=== PATIENT | male | born 1955 | race Two or more races ===

== ENCOUNTER 2019-11-20 22:59 | Emergency (ER) | payer SELFPAY ==
[~2019-11-20] VITALS: Ht 175.3 cm; Wt 90.0 kg
[2019-11-20] MEDS ORDERED: LABETALOL 20 MG/4 ML DISP.SYRIN. IVP ONE (23:45)
[2019-11-20] MEDS ORDERED: TETRACAINE 0.5% OPHTH SOLUTION 4ML BOTTLE. OU ONE (23:45)
[2019-11-20 23:48] LABS: BASO % 0 % (0-3); EOS # 0.2 x10^3/uL (0.0-0.7); EOS % 3 % (0-3); HEMATOCRIT 42.7 % (39.0-53.0); HEMOGLOBIN 14.7 g/dL (13.0-17.5); LYMPH # 2.2 x10^3/uL (1.0-4.8); LYMPH % 33 % (24-48); MEAN CORPUSCULAR HEMOGLOBIN 31 pg (25-35); MEAN CORPUSCULAR HGB CONC 35 g/dL (31-37); MEAN CORPUSCULAR VOLUME 90 fL (79-100); MONO # 0.6 x10^3/uL (0.0-1.1); MONO % 9 % (0-9); NEUT # 3.6 x10^3/uL (1.8-7.7); NEUT % 54 % (31-73); PLATELET COUNT 217 x10^3/uL (140-400); RED BLOOD COUNT 4.75 x10^6/uL (4.30-5.70); RED CELL DISTRIBUTION WIDTH 13.3 % (11.5-14.5); WHITE BLOOD COUNT 6.6 x10^3/uL (4.0-11.0)
--- NOTE | 2019-11-20 23:52 | EKG ---
[facility] [address] [place] [address] Test Date: 2019-11-20 Test Time: 23:35:30 Pat Name: MISTI MAZARIEGOS Department: Room: Gender: M Generation Engineer: : [id number] Requested By: CL BAPTISTE Order Number: [id number] Reading MD: Measurements Intervals Kermit Rate: 66 P: CA: QRS: -12 QRSD: 92 T: 42 QT: 390 QTc: 410 Interpretive Statements ATRIAL FIBRILLATION LEFTWARD AXIS ABNORMAL ECG No previous ECG available for comparison
[2019-11-20 23:55] LABS: CALCIUM 8.9 mg/dL (8.5-10.1); CREATININE 1.1 mg/dL (0.7-1.3); GFR 67.2; POTASSIUM 3.6 mmol/L (3.5-5.1)
[2019-11-21 00:01] LABS: ALBUMIN 3.7 g/dL (3.4-5.0); ALBUMIN/GLOBULIN RATIO 0.9 (1.0-1.7); TOTAL BILIRUBIN 0.3 mg/dL (0.2-1.0); TOTAL PROTEIN 7.6 g/dL (6.4-8.2)
--- NOTE | 2019-11-21 00:07 | RAD ---
CHEST AP ONLY History: Chest pain Comparison: None. Findings: No consolidation or pleural effusion. Normal heart size. No pneumothorax. Impression: 1. No acute cardiopulmonary process. Electronically signed by: Alex Cunningham DO (11/21/2019 12:04 AM) [id number]
[2019-11-21] MEDS ORDERED: AMLO10TA4 PO (01:04)
--- NOTE | 2019-11-21 01:04 | PHYS DOC ---
Past Medical History Past Medical History: No Pertinent History Past Surgical History: No Surgical History Smoking Status: Never Smoker Alcohol Use: None Adult General Chief Complaint Chief Complaint: EYE PROBLEMS HPI HPI Patient is a 64 year old Korean-speaking male who presents with multiple medical complaints. Patient reports right retro-orbital headache with right eye redness with decreased vision in right eye the past 3 months. Patient reportedly was diagnosed with an eye infection and treated with drops which did not improve. Patient does not have health insurance and did not follow-up with a primary care doctor or an trading specialist. He is continued to have pain with progressive vision loss able to see light and dark and outlines of shapes only in his right eye. Patient also noted be hypertensive blood pressure 200/100. Patient does not take any medication or participate in routine health care. Translation is provided by a female family member who is present in the room. [] Review of Systems Review of Systems ROS PER hpi All other systems were reviewed and found to be within normal limits, except as documented in this note. Current Medications Current Medications Current Medications Medications (Trade) Dose Ordered Sig/Prem Start Time Stop Time Status Last Admin Dose Admin Labetalol HCl (Normodyne Iv Push) 20 mg 1X ONCE 11/20/19 23:45 11/20/19 23:46 DC 11/20/19 23:58 20 MG Tetracaine HCl (Tetracaine) 1 drop 1X ONCE 11/20/19 23:45 11/20/19 23:46 DC Allergies Allergies Allergies Coded Allergies Type Severity Reaction Last Updated Verified No Known Drug Allergies 11/20/19 No Physical Exam Physical Exam Constitutional: Well developed, well nourished, no acute distress, non-toxic appearance. [] HENT: Normocephalic, atraumatic, bilateral external ears normal, oropharynx moist, no oral exudates, nose normal. [] Eyes: Pupils round, limited right pupil reactivity, EOMI, right, injected, cornea clouded, medial pytergium present, unable to perform posterior funduscopic exam. Left eye, conjunctiva, scleral normal. Visual acuity noted per nursing note. IOP D 85, S 58.[] Neck: Normal range of motion. [] Cardiovascular:Heart rate regular rhythm, no murmur [] Lungs & Thorax: Bilateral breath sounds clear to auscultation [] Abdomen: Bowel sounds normal, soft, no tenderness, no masses, no pulsatile masses. [] Skin: Warm, dry, no erythema, no rash. [] Back: No tenderness, no CVA tenderness. [] Extremities: No tenderness, no edema. [] Neurologic: Alert and oriented, normal motor function, normal sensory function, no focal deficits noted. [] Psychologic: Affect normal, judgement normal, mood normal. [] Current Patient Data Vital Signs Vital Signs Date Time Temp Pulse Resp B/P (MAP) Pulse Ox O2 Delivery O2 Flow Rate FiO2 11/20/19 23:58 66 171/82 11/20/19 23:10 97.8 20 99 Room Air 97.8 Lab Values Laboratory Tests Test 11/20/19 23:40 White Blood Count 6.6 x10^3/uL (4.0-11.0) Red Blood Count 4.75 x10^6/uL (4.30-5.70) Hemoglobin 14.7 g/dL (13.0-17.5) Hematocrit 42.7 % (39.0-53.0) Mean Corpuscular Volume 90 fL (79-100) Mean Corpuscular Hemoglobin 31 pg (25-35) Mean Corpuscular Hemoglobin Concent 35 g/dL (31-37) Red Cell Distribution Width 13.3 % (11.5-14.5) Platelet Count 217 x10^3/uL (140-400) Neutrophils (%) (Auto) 54 % (31-73) Lymphocytes (%) (Auto) 33 % (24-48) Monocytes (%) (Auto) 9 % (0-9) Eosinophils (%) (Auto) 3 % (0-3) Basophils (%) (Auto) 0 % (0-3) Neutrophils # (Auto) 3.6 x10^3/uL (1.8-7.7) Lymphocytes # (Auto) 2.2 x10^3/uL (1.0-4.8) Monocytes # (Auto) 0.6 x10^3/uL (0.0-1.1) Eosinophils # (Auto) 0.2 x10^3/uL (0.0-0.7) Basophils # (Auto) 0.0 x10^3/uL (0.0-0.2) Sodium Level 140 mmol/L (136-145) Potassium Level 3.6 mmol/L (3.5-5.1) Chloride Level 104 mmol/L (98-107) Carbon Dioxide Level 28 mmol/L (21-32) Anion Gap 8 (6-14) Blood Urea Nitrogen 14 mg/dL (8-26) Creatinine 1.1 mg/dL (0.7-1.3) Estimated GFR (Cockcroft-Gault) 67.2 BUN/Creatinine Ratio 13 (6-20) Glucose Level 160 mg/dL (70-99) H Calcium Level 8.9 mg/dL (8.5-10.1) Total Bilirubin 0.3 mg/dL (0.2-1.0) Aspartate Amino Transferase (AST) 26 U/L (15-37) Alanine Aminotransferase (ALT) 38 U/L (16-63) Alkaline Phosphatase 104 U/L (46-116) Total Protein 7.6 g/dL (6.4-8.2) Albumin 3.7 g/dL (3.4-5.0) Albumin/Globulin Ratio 0.9 (1.0-1.7) L Laboratory Tests 11/20/19 23:40 Laboratory Tests 11/20/19 23:40 EKG EKG [EKG: reviewed] Radiology/Procedures Radiology/Procedures [] Course & Med Decision Making Course & Med Decision Making Pertinent Labs and Imaging studies reviewed. (See chart for details) [Patient with multiple chronic untreated medical conditions with particular concern for chronic right eye pain with vision loss. Patient with significant visual acuity deficit with elevated IOP. 20/200, 85 in right eye with 20/25, 58 in left eye. Patient was also noted to be hypertensive. Labetalol given with improvement. Lab work, EKG also reviewed. Given the patient's multiple longstanding problems and chronic right eye vision loss, I will refer him to primary care provider and started him on blood pressure medications. Patient's daughter states she has eye doctor that she plans to call for an appointment later tomorrow. Patient and family instructed that patient is at increased risk of vision loss of the left eye.] Dragon Disclaimer Dragon Disclaimer This electronic medical record was generated, in whole or in part, using a voice recognition dictation system. Departure Departure Impression: Primary Impression: Pain around right eye Additional Impressions: Vision loss of right eye Glaucoma Elevated blood pressure reading Disposition: HOME, SELF-CARE Condition: STABLE Referrals: NO PCP (PCP) Patient Instructions: Glaucoma, Hypertension Additional Instructions: You were evaluated in the emergency department for right eye pain and vision loss. It is important that you follow-up with the eye doctor tomorrow or Saturday for formal eye evaluation and treatment. You are at risk of vision loss in your left eye if you do not follow-up with an eye doctor next week. Please start blood pressure medication and take as directed. Please establish with a local primary care provider for further primary care and screening and management of chronic medical conditions. Scripts Amlodipine Besylate (NORVASC) 10 Mg Tablet 10 MG PO DAILY, #30 TAB Prov: CL BAPTISTE DO 11/21/19 Problem Qualifiers CL BAPTISTE DO Nov 21, 2019 01:04
[2019-11-21 01:20] VITALS: BP 175/89
== END 2019-11-21 01:26 | disposition home or self-care (01) ==
LOC: ER 22:59
DX: H54.61 Unqualified visual loss, right eye, normal vision left eye (principal); H57.11 Ocular pain, right eye; H40.9 Unspecified glaucoma; I10 Essential (primary) hypertension; R51 Headache
CPT/HCPCS: 36415; 71045; 80053; 85025; 93005; 96374; 99285; J3490